=== PATIENT | male | born 1985 | race Caucasian/White ===

== ENCOUNTER 2019-11-06 06:42 | Observation (INO) | payer OTHER ==
[~2019-11-06] VITALS: Ht 188 cm; Wt 99.8 kg
--- NOTE | ~2019-11-06 | D ---
[facility] [place] [address] DISCHARGE SUMMARY Name: ENMA LEROY Room #: 202-P [facility] Andrew#: [id number] Admission: 11/06/19 Attend Phys: Wilson Packer MD Discharge: Date of : 85 Report #: [id number] THIS REPORT FOR: //name// CC: Wilson Packer Physician staff DISCHARGE DIAGNOSIS: Ckhey-Nuytjslbe-Mkiut syndrome with 2 accessory pathways. PROCEDURES PERFORMED: SVT ablation. HISTORY OF PRESENT ILLNESS: The patient is a 33-year-old with history of prior syncope, recently evaluated by Cardiology and found to have evidence of manifest preexcitation. He is here for EP study and ablation. The patient underwent EP study and was found to have 2 accessory pathways. There was one accessory pathway that was located at 3 o'clock that was able to sustain AVRT. This was successfully ablated. Upon further testing, he was also noted to have an antegrade only conducting pathway that was located at 6 o'clock. This pathway was more challenging to ablate. It was larger requiring multiple ablation lesions. Eventually, this ablation this pathway was also eliminated. Of note, the pathway that was located at 6 o'clock had very rapid antegrade conduction properties, went on isoproterenol and was likely high risk for causing sudden cardiac . The procedure was successful with no complications. HOSPITAL COURSE: The patient was monitored in the CCU overnight and did well. On the day of discharge, he denied any chest pain, shortness of breath, fevers, chills or groin discomfort. PHYSICAL EXAMINATION: GENERAL: No acute distress. HEART: Regular rate and rhythm. LUNGS: Clear to auscultation bilaterally. ABDOMEN: Soft, nontender, nondistended. EXTREMITIES: No clubbing, cyanosis, edema and bilateral groins showed no significant bruising or hematoma. On telemetry, he remained in sinus rhythm, had some bradycardia while sleeping. His 12-lead EKG this morning showed that he no longer has manifest preexcitation. As such, he was deemed stable for discharge home. Discharge instructions were reviewed including my request that he take aspirin 325 mg for 1 week. He will follow up with me in 3 months. By: [id number] Wilson Packer MD /nt
--- NOTE | ~2019-11-06 | P ---
[facility] [place] [address] PROCEDURE REPORT Name: ENMA LEROY [id number] Admission: 11/06/19 Attend Phys: Wilson Packer MD Discharge: Date of : 85 Report #: [id number] THIS REPORT FOR: //name// CC: Wilson Packer Physician staff DATE OF SERVICE: 11/06/2019 SUPRAVENTRICULAR TACHYCARDIA ABLATION PROCEDURES PERFORMED: 1. SVT ablation, CPT code 64982. 2. EP with left atrial pacing and recording, CPT code 27064. 3. Program stimulation and pacing after IV drug infusion, CPT code 83509. 4. Intracardiac echo, CPT code 83326. 5. 3D mapping, CPT code 56101. 6. Transseptal procedure, CPT code 35843. 7. Arterial line placement, CPT code 03882. 8. Second pathway ablation, CPT code 20891. HISTORY: The patient is 33 years old with a history of prior syncopal episode recently found to have Noefv-Bixhokdgo-Byyhv syndrome on an EKG. He is here for EP study and ablation. ANESTHESIA: The patient underwent MAC anesthesia with no anesthesia related complications. DESCRIPTION OF PROCEDURE: The patient underwent informed consent. We discussed the details of the procedure including the risks, which include but not limited to bleeding, vascular damage, stroke, MO as well as damage to the tolowa dee-ni' conduction system requiring permanent pacemaker. He understood these risks and is willing to proceed. The patient was brought to the EP laboratory in a fasting and sedated state and prepped and draped in sterile fashion and I obtained access to the bilateral femoral veins. In the right femoral vein, I placed an 8 and 6-Colombian short sheath. In the left femoral vein, I placed a 6 and 7-Colombian short sheath. In the left femoral artery, I placed a 6-Colombian short sheath. Next under fluoroscopy, 3 quadripolar catheters were placed at the HRA, His and RV positions and a decapolar catheter was placed in the coronary sinus with ease, which was utilized for the left atrial pacing and recording. A basic EP study was performed. At baseline, the patient was in sinus rhythm with a sinus cycle length of 860 milliseconds, AK interval 150 milliseconds, QRS duration 130 milliseconds, and evidence of manifest preexcitation. His QT interval was 405 milliseconds, his AH interval was 73 milliseconds, and his [facility] [address] [place] [address] PROCEDURE REPORT Name: ENMA LEROY Room #: 202-P [facility]#: [id number] Admission: 11/06/19 Attend Phys: Wilson Packer MD Discharge: Date of : 85 Report #: [id number] interval was 0 milliseconds. Next, atrial pacing was performed and I was able to demonstrate maximal preexcitation, which showed an isoelectric QRS in lead 1, but positive concordance in V2 through V6. In the inferior leads, the QRS was negative deflections and in lead 1, the QRS was positive. Based on algorithms, this was suggestive of either right or left posterior septal pathway. Next, atrial burst pacing was performed and accessory pathway block was noted at 370 milliseconds. Atrial ERP was noted at 280 milliseconds at a [address] cycle length. Ventricular pacing was performed and VA block was noted to be 330 milliseconds with earliest atrial activation occurring at CS1- 2 and CS3-4 suggestive of a left-sided pathway. The accessory pathway retrograde effective refractory period was 310 milliseconds at a [address] cycle length. No SVT was induced. Based on his maximal preexcitation and his retrograde aortic conduction, these appear did not really be consistent with one another. It appeared that we had a left-sided pathway while pacing the ventricle; however, antegrade conduction did not necessarily suggest a left lateral pathway. Isoproterenol infusion was started at 2 mcg per minute and with atrial burst pacing, ventricular burst pacing or single atrial extrastimuli, SVT was easily inducible. The tachycardia cycle length was 420 milliseconds, the septal VA time was 160 milliseconds and the earliest atrial signal was at CS1-2. I had some difficulties entraining this, but I did entrain it once and demonstrated VAHV response. I terminated the tachycardia and on isoproterenol, I performed aggressive atrial burst pacing and antegrade conduction of the accessory pathway on isoproterenol was less than 240 milliseconds. This suggests that this pathway antegrade properties could result in sudden cardiac . Next, isoproterenol was turned off and I continued to try to induce tachycardia. With ventricular burst pacing, the patient did go into atrial fibrillation, but by this time, the isoproterenol had already worn off, so antegrade conduction via the pathway was not that robust. His AFib lasted about 20-30 seconds and then he converted on his own. As such, at this point, the patient had a documented SVT with what appears to be a left-sided accessory pathway. INTRACARDIAC ULTRASOUND AND TRANSSEPTAL PROCEDURE: Next, I obtained additional access to the right femoral vein x 1 and placed a 9-Colombian short sheath and via this, I placed my ICE catheter. Using intracardiac ultrasound, I created a detailed 3D geometry of the left atrium and the mitral valve. Once I concluded creating this, the patient was systemically heparinized and a transseptal was performed using an SL1 sheath and a Rhodell needle. My transseptal was straightforward and I was able to advance the SL1 sheath into the left atrium. 3D MAPPING AND ABLATION: Next, I advanced my ablation catheter towards the mitral valve. This landed very near the accessory pathway, which was around 3 o'clock along the mitral annulus. There were very nice fractionated potentials between the atrial and ventricular signal suggestive of a pathway potential. I tacked this location quickly. I then performed 3D mapping of the tachycardia [facility] [address] [place] [address] PROCEDURE REPORT Name: ENMA LEROY Room #: 202-P [facility] Francisco Morales#: [id number] Admission: 11/06/19 Attend Phys: Wilson Packer MD Discharge: Date of : 85 Report #: [id number] and moved inferior and superior to this location and this location appeared to be the earliest site. Therefore, ablation was performed at this site at 50 valentine using a [employer] ThermoCool ablation catheter. After I finished ablating here, there was no further retrograde conduction via this accessory pathway. However, interestingly, there still appeared to be antegrade conduction via the pathway. 3D MAPPING AND ABLATION OF SUPRAVENTRICULAR TACHYCARDIA #2: I therefore started mapping the pathway again. Initially, I thought that maybe I had only gotten the retrograde conduction of the initial pathway; however, when I started mapping the newer pathway, this was clearly at a different location. In fact, it was about 20 mm septal to the prior ablation site at around 6 o'clock on the mitral annulus. Once I placed the ablation catheter at this site, I was able to bump to terminate the antegrade conducting pathway. I mapped this pathway while pacing the coronary sinus. Ablation here resulted in termination of the pathway, but after about 10-15 minutes, it came back. Therefore, I performed multiple ablation lesions at this site and finally, we got rid of this pathway as well. We monitored for a period of 1 hour and there was no return of antegrade conduction via this pathway. Furthermore for the remainder of the case, the patient had no evidence of retrograde conduction suggesting that the other pathway was also gone. POST-ABLATION TESTING: Post-ablation, the patient was placed back on isoproterenol 2 mcg per minute. Atrial burst pacing was performed and AV block was noted at 260 milliseconds. Atrial ERP was noted 250 milliseconds at a [address] cycle length. Again, ventricular pacing was performed and there was no evidence of VA conduction even on isoproterenol. Isoproterenol infusion was turned off and I continued performing testing. AV block was noted at 400 milliseconds. We waited for an hour and it appeared that we eliminated both the accessory pathway at 3 o'clock and the other accessory pathway at 6 o'clock. Post-ablation, the patient was in sinus rhythm with a sinus cycle length of 600 milliseconds, AK interval 150 milliseconds, QRS duration now normal at 94 milliseconds, the QT interval 345 milliseconds, AH interval 90 milliseconds, and HV interval 40 milliseconds. As such, intracardiac ultrasound was performed. There was no pericardial effusion. Catheters and sheaths were pulled and hemostasis was obtained. The patient awoke neurologically and hemodynamically intact. No complications and no significant bleeding. CONCLUSIONS: 1. Successful ablation of an accessory pathway with both antegrade and retrograde conduction properties located at 3 o'clock along the mitral annulus. 2. Successful ablation of another accessory pathway located at 6 o'clock on the mitral annulus with only antegrade conducting properties and also high risk for sudden due to rapid conduction properties. [facility] [address] [place] [address] PROCEDURE REPORT Name: ENMA LEROY Room #: 202-P [facility] Francisco Morales#: [id number] Admission: 11/06/19 Attend Phys: Wilson Packer MD Discharge: Date of : 85 Report #: [id number] 3. Normal SA sayda function. 4. Normal AV sayda function. 5. Normal His-Purkinje function. 6. No other inducible arrhythmias on or off isoproterenol. By: [id number] Wilson Packer MD /nt
[2019-11-06 07:11] VITALS: BP 128/85
[2019-11-06] MEDS ORDERED: SUPER THERAVIT1 EACH PO (07:16)
[2019-11-06] MEDS ORDERED: PROBIOTIC1 EAC7 PO (07:17)
[2019-11-06 07:28] LABS: ABSOLUTE NEUTROPHILS 3.5 thou/uL (1.4-8.2); BASOPHILS 0.6 % (0.0-2.0); EOSINOPHILS 1.3 % (0.0-3.0); HEMOGLOBIN 15.6 gm/dL (14.0-18.0); MCHC 33.9 g/dL (28.0-37.0); MCV 88.6 fL (80.0-100.0); MONOCYTES 9.5 % (1.0-8.0); PLATELET COUNT 223 thou/uL (150-400); POLYS 61.6 % (36.0-66.0); RDW 12.9 % (10.5-14.5); WBC 5.6 thou/uL (4.0-11.0)
[2019-11-06 07:39] LABS: INR 1.1; PROTIME 10.9 Seconds (9.3-11.4)
[2019-11-06 07:46] LABS: CALCIUM 9.3 mg/dL (8.5-10.1); POTASSIUM 4.4 mmol/L (3.5-5.1)
[2019-11-06 07:52] LABS: ALBUMIN 4.4 g/dL (3.4-5.0); TOTAL BILIRUBIN 0.5 mg/dL (<0.1-1.0); TOTAL PROTEIN 7.9 g/dL (6.4-8.2)
--- NOTE | 2019-11-06 14:21 | NUR ---
PT ORIENTED TO ROOM AND UNIT. BED LOW AND LOCKED, SIDE RAILS UPX3, CALL LIGHT IN REACH. TELE APPLIED. PT WILL BE LAYING FLAT FOR 6 HOURS. WILL CONTINUE TO ASSESS.
--- NOTE | 2019-11-06 14:29 | NUR ---
ELI CLOSURE DEVICE BILAT GROIN CDI WITH NO HEMATOMA.
[2019-11-06 19:54] VITALS: BP 124/67
[2019-11-06 21:10] VITALS: BP 124/67
[2019-11-07 00:24] VITALS: BP 119/50
--- NOTE | 2019-11-07 04:17 | NUR ---
ASSESSMENT DOCUMENTED.PT BEEN RESTING N NO ACUTE DSTRESS.A/OX4.VSS.S/P SVT ABLATION,CHASE GROINS W/O HEMATOMA OR ACITVE BLEEDING.UP AD ASHLYN TO BR,VOIDING ADEQUATELY POST LE CATHETER REMOVAL.POC IS TO DISCHARGE TO HOME THIS AM.PT DENIES ANY NEEDS AT THIS TIME.WILL CONT TO MONITOR.
[2019-11-07 05:01] VITALS: BP 118/54
[2019-11-07 07:50] VITALS: BP 118/44
[2019-11-07 09:29] VITALS: BP 118/44
--- NOTE | 2019-11-07 09:32 | NUR ---
ANTIA ERICKSON TELE DISCONTIUED. PT UNDERSTANDS ALL FOLLOW UP ORDERS, WILL DISCHARGE TO HOME.
--- NOTE | 2019-11-07 19:47 | EKG ---
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 : 1985 Requested By: Wilson Packer Order Number: [id number] MD: James Mansfield Measurements Intervals Bertha Rate: 51 P: -6 AZ: 133 QRS: 17 QRSD: 117 T: 35 QT: 423 QTc: 390 Interpretive Statements Sinus arrhythmia Nonspecific intraventricular conduction delay No previous ECG available for comparison Electronically Signed On 11-07-2019 19:46:29 REGULATORY ASSOCIATE by James Mansfield [email or web address] <ELECTRONICALLY SIGNED> By: James Mansfield MD, [facility] 11/07/19 1946 0716 5 James Mansfield MD, FACC /EPI
== END 2019-11-07 10:09 | disposition home or self-care (01) ==
LOC: CATH 06:42 → 2N 14:06
PROVIDERS: ADMIT Internal Medicine Cardiovascular Disease
DX: I45.6 Pre-excitation syndrome (principal); I47.1 Supraventricular tachycardia; R55 Syncope and collapse; E78.5 Hyperlipidemia, unspecified; Z79.899 Other long term (current) drug therapy
CPT/HCPCS: 62110; 62900; 70005